=== PATIENT | male | born 1995 | race Caucasian/White ===

== ENCOUNTER 2017-04-26 09:59 | Outpatient (RCR) | payer OTHER, SELFPAY ==
[~2017-04-26] VITALS: Ht 182.9 cm; Wt 72.6 kg
[2017-05-04] MEDS ORDERED: Kenalog-10 5ml Inj ONE (06:00)
[2017-05-04] MEDS ORDERED: Kenalog-10 5ml Inj IARTIC ONE (14:15)
== END 2017-05-12 | disposition home or self-care (01) ==
LOC: WCC 09:59
DX: T86.828 Other complications of skin graft (allograft) (autograft) (principal); L91.0 Hypertrophic scar
CPT/HCPCS: 11900; G0463; J3301; 99204

== ENCOUNTER 2017-07-19 09:02 | Outpatient (RCR) | payer OTHER ==
[~2017-07-19] VITALS: Ht 182.9 cm; Wt 72.6 kg
[2017-07-22] MEDS ORDERED: Kenalog-10 5ml Inj IARTIC ONE (16:45)
== END 2017-08-12 | disposition home or self-care (01) ==
LOC: WCC 09:02
DX: T86.828 Other complications of skin graft (allograft) (autograft) (principal); L91.0 Hypertrophic scar
CPT/HCPCS: 11900

== ENCOUNTER 2017-10-25 09:40 | Outpatient (RCR) | payer OTHER | END 2017-11-12 | disposition home or self-care (01) | LOC: WCC 09:40 | DX: T86.828 Other complications of skin graft (allograft) (autograft) (principal); L91.0 Hypertrophic scar ==

== ENCOUNTER 2017-12-27 12:37 | Outpatient (RCR) | payer OTHER ==
[~2017-12-27] VITALS: Ht 182.9 cm; Wt 72.6 kg
[2017-12-29] MEDS ORDERED: Kenalog-10 5ml Inj IARTIC ONE (11:15)
== END 2018-01-12 | disposition home or self-care (01) ==
LOC: WCC 12:37
DX: L91.0 Hypertrophic scar (principal); T86.828 Other complications of skin graft (allograft) (autograft)
CPT/HCPCS: 11900; J3301

== ENCOUNTER 2018-06-06 10:26 | Outpatient (RCR) | payer OTHER ==
[~2018-06-06] VITALS: Ht 182.9 cm; Wt 72.6 kg
[2018-06-06] MEDS ORDERED: Kenalog-40 5ml vial ONE (10:27)
[2018-06-07] MEDS ORDERED: Kenalog-10 5ml Inj IARTIC ONE (12:30)
[2018-06-08] MEDS ORDERED: Kenalog-10 5ml Inj ONE (06:00)
== END 2018-06-12 | disposition home or self-care (01) ==
LOC: WCC 10:26
DX: T86.828 Other complications of skin graft (allograft) (autograft) (principal); L91.0 Hypertrophic scar
CPT/HCPCS: 11900; J3301

== ENCOUNTER 2018-09-19 13:47 | Outpatient (RCR) | payer OTHER ==
[~2018-09-19] VITALS: Ht 182.9 cm; Wt 72.6 kg
[2018-09-22] MEDS ORDERED: Kenalog-10 5ml Inj IARTIC ONE (09:30)
== END 2018-10-12 | disposition home or self-care (01) ==
LOC: WCC 13:47
DX: T86.828 Other complications of skin graft (allograft) (autograft) (principal); L91.0 Hypertrophic scar
CPT/HCPCS: 11900; J3301

== ENCOUNTER 2018-11-28 11:58 | Outpatient (RCR) | payer OTHER ==
[~2018-11-28] VITALS: Ht 182.9 cm; Wt 72.6 kg
[2018-11-30] MEDS ORDERED: Kenalog-40 1ml Vial IARTIC ONE (08:45)
== END 2018-12-12 | disposition home or self-care (01) ==
LOC: WCC 11:58
DX: T86.828 Other complications of skin graft (allograft) (autograft) (principal); L91.8 Other hypertrophic disorders of the skin; L91.0 Hypertrophic scar
CPT/HCPCS: 11900; J3301